=== PATIENT | male | born 1945 | race Caucasian/White ===

== ENCOUNTER 2018-11-26 02:19 | Inpatient (IN) | payer MEDICARE, OTHER ==
[~2018-11-26] VITALS: Ht 177.8 cm; Wt 59.5 kg
[2018-11-26] MEDS ORDERED: NS IV 500 ML 500 ML IV ONE (02:46)
[2018-11-26] MEDS ORDERED: fentaNYL INJECTION 100 MCG/2 ML AMP IVP STA (02:46)
[2018-11-26] MEDS ORDERED: DEXAMETHASONE 10 MG/ML (DECADRON) 1 ML VIAL IV ONE (03:00)
[2018-11-26 03:06] LABS: BASOPHILS % (AUTO) 0 % (0-10); EOSINOPHILS % (AUTO) 0 % (0-10); HEMATOCRIT 30 % (40-54); HEMOGLOBIN 9.6 G/DL (13.3-17.7); LYMPHOCYTES # (AUTO) 0.8 X 10^3 (1.0-4.0); LYMPHOCYTES % (AUTO) 16 % (12-44); MEAN CORPUSCULAR HEMOGLOBIN 29 PG (25-34); MEAN CORPUSCULAR HGB CONC 32 G/DL (32-36); MEAN CORPUSCULAR VOLUME 90 FL (80-99); MEAN PLATELET VOLUME 7.8 FL (7.4-10.4); MONOCYTES # (AUTO) 0.2 X 10^3 (0.0-1.0); MONOCYTES % (AUTO) 3 % (0-12); NEUTROPHILS # (AUTO) 4.1 X 10^3 (1.8-7.8); NEUTROPHILS % (AUTO) 80 % (42-75); PLATELET COUNT 125 10^3/uL (130-400); RED BLOOD COUNT 3.29 10^6/uL (4.35-5.85); RED CELL DISTRIBUTION WIDTH 15.4 % (10.0-14.5); WHITE BLOOD COUNT 5.1 10^3/uL (4.3-11.0)
--- NOTE | 2018-11-26 03:12 | ED General ---
General Stated Complaint: HALUCINATIONS, BREAST CA STG IV METS TO BRAIN Source of Information: Patient Exam Limitations: No Limitations History of Present Illness Date Seen by Provider: Nov 26, 2018 Time Seen by Provider: 02:45 Initial Comments Here with report of altered mental status and inappropriate talk all day long. Family at bedside reports patient has breast cancer with metastasis to bone, liver, spleen, kidney and brain. Currently undergoing chemotherapy but also having radiation therapy. Did have radiation therapy yesterday. Mental status changes started in the morning but improved at about the time of radiation therapy but worsened again tonight. Family notes that he has been cursing a lot and this is not like him. Also note have a changes such as he has worn his cowboy hat for 40 years but tonight he is wearing a baseball Instead he is telling inappropriate jokes. They're concerned about the lesions in his brain. He is on Xarelto for blood clots in the past. No recent falls or injury to report. Family at bedside and are attentive to his knees. Patient is DO NOT RESUSCITATE. Currently is on dexamethasone 4 mg twice a day. He has not missed any doses of medicine. Currently on oxycodone 10 one half to one tab every 4 hours as needed for pain. Pain is to the chest and upper abdomen which is typical for his cancer pain. This is not a new type pain for him. Denies headaches or vision problems. Timing/Duration: 12-24 Hours, Getting Worse Severity: Moderate Modifying Factors: improves with Rest Associated Systoms: No Cough, No Fever/Chills, No Headaches, No Loss of Appetite, No Nausea/Vomiting, No Shortness of Air, No Weakness Allergies and Home Medications Allergies Coded Allergies: No Known Drug Allergies (Unverified , 11/26/18) Patient Home Medication List Home Medication List Reviewed: Yes Review of Systems Review of Systems Constitutional: see HPI; No chills, No fever EENTM: no symptoms reported Cardiovascular: no symptoms reported Gastrointestinal: abdominal pain (epigastric and low chest wall); No nausea, No vomiting Genitourinary: no symptoms reported Musculoskeletal: see HPI, muscle pain; No muscle weakness Skin: no symptoms reported Psychiatric/Neurological: No Symptoms Reported All Other Systems Reviewed Negative Unless Noted: Yes Past Nstkkeq-Qjkmci-Vnchfv Hx Past Med/Social Hx: Reviewed Nursing Past Med/Soc Hx Patient Social History Alcohol Use: Denies Use Recreational Drug Use: No Smoking Status: Former Smoker Recent Foreign Travel: No Contact w/Someone Who Travel: No Past Medical History Surgeries: Yes Appendectomy Respiratory: No Cardiac: No Neurological: Yes Brain Tumor Cancer: Yes Brain, Liver, Bone, Breast, Kidney Did You Recieve Any Treatments: Yes What Type of Treatment Did You: Chemotherapy, Radiation Family Medical History Reviewed Nursing Family Hx Physical Exam Vital Signs Vital Signs - First Documented 11/26/18 03:24 Temp 98.0 Pulse 86 Resp 20 B/P (MAP) 110/73 (85) Pulse Ox 98 O2 Delivery Room Air Capillary Refill : Height, Weight, BMI Height: '" Weight: lbs. oz. kg; BMI Method: General Appearance: No Apparent Distress, Thin HEENT: PERRL/EOMI, Pharynx Normal Neck: Non Tender, Supple Respiratory: Lungs Clear, Normal Breath Sounds Cardiovascular: Regular Rate, Rhythm, No Murmur Gastrointestinal: Normal Bowel Sounds, No Organomegaly, No Pulsatile Mass, Soft , Tenderness (epigastric low chest region) Back: Normal Inspection, No CVA Tenderness, No Vertebral Tenderness Extremity: Normal Range of Motion, Non Tender Neurologic/Psychiatric: Alert, Disoriented (situation) Skin: Normal Color, Warm/Dry Progress/Results/Core Measures Suspected Sepsis SIRS Temperature: Pulse: Respiratory Rate: Laboratory Tests 11/26/18 02:57: White Blood Count 5.1 Blood Pressure / Mean: Laboratory Tests 11/26/18 02:57: Creatinine 0.84, Platelet Count 125L, Total Bilirubin 0.4 Results/Orders Lab Results Laboratory Tests Test 11/26/18 02:57 Range/Units White Blood Count 5.1 4.3-11.0 10^3/uL Red Blood Count 3.29 L 4.35-5.85 10^6/uL Hemoglobin 9.6 L 13.3-17.7 G/DL Hematocrit 30 L 40-54 % Mean Corpuscular Volume 90 80-99 FL Mean Corpuscular Hemoglobin 29 25-34 PG Mean Corpuscular Hemoglobin Concent 32 32-36 G/DL Red Cell Distribution Width 15.4 H 10.0-14.5 % Platelet Count 125 L 130-400 10^3/uL Mean Platelet Volume 7.8 7.4-10.4 FL Neutrophils (%) (Auto) 80 H 42-75 % Lymphocytes (%) (Auto) 16 12-44 % Monocytes (%) (Auto) 3 0-12 % Eosinophils (%) (Auto) 0 0-10 % Basophils (%) (Auto) 0 0-10 % Neutrophils # (Auto) 4.1 1.8-7.8 X 10^3 Lymphocytes # (Auto) 0.8 L 1.0-4.0 X 10^3 Monocytes # (Auto) 0.2 0.0-1.0 X 10^3 Eosinophils # (Auto) 0.0 0.0-0.3 10^3/uL Basophils # (Auto) 0.0 0.0-0.1 10^3/uL Sodium Level 135 135-145 MMOL/L Potassium Level 4.0 3.6-5.0 MMOL/L Chloride Level 101 98-107 MMOL/L Carbon Dioxide Level 22 21-32 MMOL/L Anion Gap 12 5-14 MMOL/L Blood Urea Nitrogen 18 7-18 MG/DL Creatinine 0.84 0.60-1.30 MG/DL Estimat Glomerular Filtration Rate > 60 BUN/Creatinine Ratio 21 Glucose Level 123 H 70-105 MG/DL Calcium Level 9.3 8.5-10.1 MG/DL Corrected Calcium 9.7 8.5-10.1 MG/DL Magnesium Level 2.0 1.8-2.4 MG/DL Total Bilirubin 0.4 0.1-1.0 MG/DL Aspartate Amino Transf (AST/SGOT) 23 5-34 U/L Alanine Aminotransferase (ALT/SGPT) 14 0-55 U/L Alkaline Phosphatase 103 40-136 U/L Total Protein 6.9 6.4-8.2 GM/DL Albumin 3.5 3.2-4.5 GM/DL My Orders Orders - BELINDA ORTIZ MD Cbc With Automated Diff (11/26/18 02:46) Comprehensive Metabolic Panel (11/26/18 02:46) Magnesium (11/26/18 02:46) Fentanyl Injection (Sublimaze Injection (11/26/18 02:46) Dexamethasone Injection (Decadron Inject (11/26/18 03:00) Saline Lock/Iv-Start (11/26/18 02:46) Ns Iv 500 Ml (Sodium Chloride 0.9%) (11/26/18 02:46) Ct Head W Wo (11/26/18 03:41) Lorazepam Injection (Ativan Injection) (11/26/18 03:45) Lorazepam Injection (Ativan Injection) (11/26/18 04:15) Iohexol Injection (Omnipaque 350 Mg/Ml 1 (11/26/18 05:00) Contrast Received (Contrast Received) (11/26/18 05:00) Ns (Ivpb) (Sodium Chloride 0.9% Ivpb Bag (11/26/18 05:00) Olanzapine Orally Dissolve Tab (Zyprexa (11/26/18 06:00) Medications Given in ED Current Medications Medications Dose Ordered Sig/Emanuel Route Start Time Stop Time Status Last Admin Dose Admin Dexamethasone Sodium Phosphate 10 mg ONCE ONCE IV 11/26/18 03:00 11/26/18 03:01 DC 11/26/18 03:11 10 MG Iohexol 100 ml ONCE ONCE IV 11/26/18 05:00 11/26/18 05:01 DC 11/26/18 05:01 80 ML Lorazepam 0.5 mg ONCE ONCE IVP 11/26/18 03:45 11/26/18 03:47 DC 11/26/18 03:56 0.5 MG Lorazepam 1 mg ONCE ONCE IVP 11/26/18 04:15 11/26/18 04:16 DC 11/26/18 04:12 1 MG Olanzapine 5 mg ONCE ONCE PO 11/26/18 06:00 11/26/18 06:01 DC 11/26/18 05:53 5 MG Sodium Chloride 100 ml ONCE ONCE IV 11/26/18 05:00 11/26/18 05:01 DC 11/26/18 05:01 80 ML Sodium Chloride 500 ml @ 0 mls/hr Q0M ONCE IV 11/26/18 02:46 11/26/18 02:57 DC 11/26/18 03:16 500 MLS/HR Vital Signs/I&O 11/26/18 03:24 Temp 98.0 Pulse 86 Resp 20 B/P (MAP) 110/73 (85) Pulse Ox 98 O2 Delivery Room Air Capillary Refill : Progress Note : Progress Note Seen and evaluated. IV access via port. Consideration of CT head with contrast so we may need another IV. Definitely we'll get CT without contrast. Pending labs. Labs ordered. Normal saline 500 mL bolus. Decadron 10 mg IV and fentanyl 50 g IV ordered. Monitor patient. CT head with and without contrast ordered. Patient did require Ativan 0.5 mg IV and then repeat dose of 1 mg IV to keep him calm for procedure. He tolerated this well. Procedure completed. 0525: CT results noted. 0545: I did discuss the case with Dr. Johnson. She accepts patient for admission, inpatient status. Zyprexa Zydis 5 mg by mouth given. Family informed of findings and concerns and agree with the plan. Patient is DO NOT RESUSCITATE. Consult oncology and radiation oncology in the morning. Diagnostic Imaging Diagonstic Imaging: CT Plain Films/CT/US/NM/MRI: head Comments There is a 2 cm enhancing mass in the right cerebellar hemisphere with vasogenic edema. This is not substantially different when compared to the recent MRI dated 11/21/18. There is no evidence of intracranial hemorrhage or acute infarct. Reviewed: [facility] ([facility]missions) Time/Spoke to Admitting Phy: 05:45 Impression Primary Impression: Altered mental status Qualified Codes: R41.0 - Disorientation, unspecified Additional Impression: Metastatic cancer to brain Disposition: ADMITTED INPATIENT Condition: Stable Admissions Decision to Admit Reason: Admit from ER (General) Decision to Admit/Date: Nov 26, 2018 Time/Decision to Admit Time: 05:45 Departure-Patient Inst. Referrals: NO,LOCAL PHYSICIAN (PCP/Family) Primary Care Physician BELINDA ORTIZ MD Nov 26, 2018 03:12
[2018-11-26 03:25] LABS: ALANINE AMINOTRANSFERASE 14 U/L (0-55); ALBUMIN 3.5 GM/DL (3.2-4.5); ALKALINE PHOSPHATASE 103 U/L (40-136); BILIRUBIN,TOTAL 0.4 MG/DL (0.1-1.0); BUN/CREATININE RATIO 21; CALCIUM 9.3 MG/DL (8.5-10.1); CARBON DIOXIDE 22 MMOL/L (21-32); CHLORIDE 101 MMOL/L (98-107); CREATININE SERUM 0.84 MG/DL (0.60-1.30); GFR ESTIMATED > 60; GLUCOSE 123 MG/DL (70-105); SODIUM 135 MMOL/L (135-145); TOTAL PROTEIN 6.9 GM/DL (6.4-8.2)
[2018-11-26] MEDS ORDERED: LORazepam INJ 2 MG/ML (ATIVAN) VIAL IVP ONE ×2 (03:45→04:15)
[2018-11-26] MEDS ORDERED: RECEIVED CONTRAST (Hold Metformin) IV SCH (05:00)
[2018-11-26] MEDS ORDERED: NS 100 ML (IVPB) BAG IV ONE (05:00)
[2018-11-26] MEDS ORDERED: IOHEXOL 350 MG/ML 100 ML (OMNIPAQUE 350) VIAL IV ONE (05:00)
[2018-11-26] MEDS ORDERED: OLANZapine 5 MG ODT (ZyPREXA ZYDIS) PO ONE (06:00)
--- NOTE | 2018-11-26 06:12 | NUR ---
Pt urinated 175 mls.
--- NOTE | 2018-11-26 06:35 | NUR ---
JOCELYNNASTER L admitted to room 427-1, with an admitting diagnosis of AMS and Breast cancer with mets on 11/26/18 from ED via , accompanied by family and ED staff.ASTER CABEZAS introduced to surroundings, call light, bed controls, phone, TV, temperature control, lights, meal times, smoking policy, visitor policy, side rail policy, bathrooms and showers. Patient Rights given to patient in the handbook. ASTER CABEZAS verbalizes understanding that [facility] is not responsible for the loss or damage to any personal effects or valuables that are kept in the patients posession during their hospitalization. The following Patient Care Plans were discussed with the pt and family: Discharge Planning, alteration in comfort, alt in mobility, and potential for injury. ASTER CABEZAS verbalizes understanding of Interdisciplinary Patient Education. Patient and/or family were informed about the Rapid Response Team and its purpose.
--- NOTE | 2018-11-26 06:46 | Diagnostic Imaging Report ---
PROCEDURE: CT head with and without contrast. TECHNIQUE: Multiple contiguous axial images were obtained through the brain before and after the administration of intravenous contrast. INDICATION: Breast cancer which is metastatic. Comparison is made with prior examination from 11/21/2018. FINDINGS: Some atrophy and chronic microvascular ischemic disease. There is no evidence of acute infarct. There is no hemorrhage. There is no hydrocephalus. There is vasogenic edema in the right cerebellar hemisphere. When compared to prior MRI, the patient has a right cerebellar metastatic focus. There is minimal mass effect. Following contrast injection there is enhancing mass in the anterior right cerebellar hemisphere measuring 2 cm. Calvarium is intact. Sinuses are clear. IMPRESSION: A 2 cm enhancing mass in the right cerebellar hemisphere with vasogenic edema. This is not significantly changed when compared to prior MRI from 11/21/2018. No evidence of hemorrhage or acute infarct. Dictated by: Dictated on workstation # [id number]
[2018-11-26] MEDS ORDERED: ONDANSETRON 4 MG/2 ML (SDV) Z0FRAN IV PRN (07:15)
[2018-11-26] MEDS ORDERED: oxyCODONE/APAP 10/325MG (PERCOCET 10) TABLET PO PRN (07:15)
[2018-11-26] MEDS ORDERED: fentaNYL INJECTION 100 MCG/2 ML AMP IV PRN (07:15)
[2018-11-26] MEDS ORDERED: CATHETER FLUSH 10 ML SYR IV PRN (07:15)
--- NOTE | 2018-11-26 07:30 | NUR ---
DR. MOE CONSULTED AT THIS TIME.
[2018-11-26 08:00] VITALS: BP 111/68
[2018-11-26] MEDS ORDERED: DEXAMETHASONE 10 MG/ML (DECADRON) 1 ML VIAL IV SCH (09:00)
--- NOTE | 2018-11-26 09:00 | NUR ---
DR. RADER HERE TO SEE PATIENT AT THIS TIME.
--- NOTE | 2018-11-26 09:35 | Progress Note-Standard ---
Standard Progress Note Progress Notes/Assess & Plan Date Seen by a Provider: Nov 26, 2018 Time Seen by a Provider: 09:29 Progress/Assessment & Plan 73-year-old male patient with history of metastatic triple negative breast cancer diagnosed in July 2017 and under treatment at [facility] clinic. Patient was diagnosed with the brain metastasis earlier this week and started on Decadron 4 mg twice a day since Wednesday. Started on whole brain radiation therapy yesterday. Patient received chemotherapy on but family unsure about the drugs. They thought the chemotherapy could be gemcitabine and carboplatin. Patient became very confused, Eriberto Sanabria and Nicole Hinton Wednesday night and a brought into the emergency room in [place]. He was evaluated and admitted for further management. Oncology consultation was obtained for concurrent care. CT scan of the head showed the metastatic lesion with surrounding edema and no evidence of bleeding. Would recommend dexamethasone 4 mg IV every 6 hours to reduce the cerebral edema. Benzodiazepines for agitation. Obtain the records from [place] as to his medications especially the chemotherapeutic agents. If he received gemcitabine-based chemotherapy this past week, I will discuss this with Dr. Moses and adjust radiation therapy as needed. I will do the full consultation tomorrow after reviewing the records. ANITHA RADER Nov 26, 2018 09:35
[2018-11-26] MEDS: DEXAMETHASONE 4 MG/ML SDV (DECADRON) IV SCH ×3 (09:45→20:22)
[2018-11-26] MEDS: LORazepam INJ 2 MG/ML (ATIVAN) VIAL IVP PRN (09:52)
--- NOTE | 2018-11-26 10:23 | History & Physical-Hospitalist ---
History of Present Illness HPI/Chief Complaint Pt is a 73yoCM with a PMH of metastatic breast cancer on palliative chemo and radiation who presented to the ER last night due to altered mental status. Patient remains very confused and unable to provide history. History is obtained from his son. Son states that he was has been on chemo this week and started radiation for brain mets yesterday. His confusion started before his radiation but after he received radiation he became more confused and agitated. He believe he was in [place] and was throwing things and acting out of character. He elected to bring him to the ER for evaluation. He was found to be behaving bizarrely likely due to cerebral edema. He was admitted for further management. Source: family Exam Limitations: clinical condition Date Seen 11/26/18 Time Seen by a Provider: 10:15 Attending Physician Antoni Michael MD PCP No,Local Physician Referring Physician Date of Admission Nov 26, 2018 at 05:54 Home Medications & Allergies Home Medications Reviewed patient Home Medication Reconciliation performed by pharmacy medication reconciliations hvac operations technician and/or nursing. Patients Allergies have been reviewed. Allergies Allergies Coded Allergies No Known Drug Allergies (Unverified11/26/18) Past Iosuyel-Nnqxpl-Zzndpo Hx Past Med/Social Hx: Reviewed Nursing Past Med/Soc Hx Patient Social History Employed/Student: retired Alcohol Use: Denies Use Alcohol Beverage of Choice: Beer Recreational Drug Use: No Smoking Status: Former Smoker Type Used: Cigarettes 2nd Hand Smoke Exposure: No Physical Abuse Screen: No Sexual Abuse: No Recent Foreign Travel: No Contact w/other who traveled: No Recent Infectious Disease Expo: No Immunizations Up To Date Pediatric: No Date of Influenza Vaccine: Aug 22, 2018 Past Medical History Surgeries: Appendectomy Currently Using CPAP: No Currently Using BIPAP: No Neurological: Brain Tumor Cancer: Brain, Liver, Bone, Breast, Kidney Did You Recieve Any Treatments: Yes What Type of Treatment Did You: Chemotherapy, Radiation Family History Reviewed Nursing Family Hx No Pertinent Family Hx Review of Systems ROS-Unable to Obtain: Confusion Constitutional: see HPI Physical Exam Physical Exam Vital Signs Vital Signs - First Documented 11/26/18 03:24 Temp 98.0 Pulse 86 Resp 20 B/P (MAP) 110/73 (85) Pulse Ox 98 O2 Delivery Room Air Capillary Refill : Less Than 3 Seconds Height, Weight, BMI Height: 5'10.00" Weight: 131lbs. 1.6oz. 59.035724fm; 18.8 BMI Method:Stated General Appearance: Chronically ill, Cachetic HEENT: PERRL/EOMI, Moist Mucous Membranes Neck: Non Tender, Supple Respiratory: Lungs Clear, No Respiratory Distress Cardiovascular: Regular Rate, Rhythm, No Murmur Gastrointestinal: Normal Bowel Sounds, Non Tender, Soft Extremity: Normal Capillary Refill, No Calf Tenderness Neurologic/Psychiatric: Alert, Disoriented, Other (moves all extremities) Skin: Normal Color, Warm/Dry Results Results/Procedures Labs Laboratory Tests 11/27/18 05:30 Patient resulted labs reviewed. Imaging: Reviewed Imaging Report Assessment/Plan Admission Diagnosis Cerebral Edema and agitation Admission Status: Inpatient Order (span 2 midnights) Reason for Inpatient Admission: Needs IV steroids and monitoring for agitation Diagnosis/Problems Diagnosis/Problems (1) Cerebral edema Status: Acute Assessment & Plan: Vasogenic edema noted on CT Head- relatively unchanged from MRI on 11/21 Continue on Decadron Oncology consulted, appreciate recs Radiation oncology consulted, appreciate recs (2) Altered mental status Status: Acute Assessment & Plan: LIke due to edema Continue on IV Decadron Continue valium and Zyprexa prn Qualifiers: Altered mental status type: delirium Qualified Codes: R41.0 - Disorientation, unspecified (3) Metastatic cancer to brain Status: Acute Assessment & Plan: Follows with oncology in [facility] Dr Banks requesting records from them to confirm type of chemo given and when Consider palliative care consult Clinical Quality Measures DVT/VTE Risk/Contraindication: Risk Factor Score Per Nursin RFS Level Per Nursing on Admit: 4+=Very High Other: SEE INTERVENTIONS ANTONI MICHAEL MD Nov 26, 2018 10:23
[2018-11-26 12:00] VITALS: BP 96/55
[2018-11-26] MEDS: CATHETER FLUSH 10 ML SYR IV SCH ×2 (15:12→20:22)
[2018-11-26 15:21] VITALS: BP 99/61
[2018-11-26 19:28] VITALS: BP 96/63
[2018-11-27] VITALS (7 sets, daily range): BP systolic 93–106; BP diastolic 50–63
[2018-11-27] MEDS: DEXAMETHASONE 4 MG/ML SDV (DECADRON) IV SCH ×4 (03:00→20:34)
[2018-11-27] MEDS: CATHETER FLUSH 10 ML SYR IV SCH ×3 (05:24→20:34)
[2018-11-27 05:50] LABS: BASOPHILS % (AUTO) 0 % (0-10); EOSINOPHILS % (AUTO) 0 % (0-10); HEMATOCRIT 27 % (40-54); HEMOGLOBIN 8.6 G/DL (13.3-17.7); LYMPHOCYTES # (AUTO) 0.4 X 10^3 (1.0-4.0); LYMPHOCYTES % (AUTO) 5 % (12-44); MEAN CORPUSCULAR HEMOGLOBIN 30 PG (25-34); MEAN CORPUSCULAR HGB CONC 32 G/DL (32-36); MEAN CORPUSCULAR VOLUME 92 FL (80-99); MEAN PLATELET VOLUME 8.5 FL (7.4-10.4); MONOCYTES # (AUTO) 0.1 X 10^3 (0.0-1.0); MONOCYTES % (AUTO) 1 % (0-12); NEUTROPHILS % (AUTO) 95 % (42-75); PLATELET COUNT 103 10^3/uL (130-400); RED BLOOD COUNT 2.91 10^6/uL (4.35-5.85); RED CELL DISTRIBUTION WIDTH 15.3 % (10.0-14.5); WHITE BLOOD COUNT 8.5 10^3/uL (4.3-11.0)
[2018-11-27 06:21] LABS: ALANINE AMINOTRANSFERASE 26 U/L (0-55); ALBUMIN 3.3 GM/DL (3.2-4.5); ALKALINE PHOSPHATASE 107 U/L (40-136); BILIRUBIN,TOTAL 0.2 MG/DL (0.1-1.0); BUN/CREATININE RATIO 30; CALCIUM 8.9 MG/DL (8.5-10.1); CARBON DIOXIDE 22 MMOL/L (21-32); CHLORIDE 103 MMOL/L (98-107); GFR ESTIMATED > 60; GLUCOSE 107 MG/DL (70-105); POTASSIUM 4.5 MMOL/L (3.6-5.0); SODIUM 135 MMOL/L (135-145); TOTAL PROTEIN 6.2 GM/DL (6.4-8.2)
[2018-11-27 07:12] LABS: LYMPHOCYTES % (MANUAL) 2 %; NEUTROPHILS % (MANUAL) 98 %; TOXIC GRANULATION/VACUOLAZATIO 1+
--- NOTE | 2018-11-27 12:54 | Progress Note-Hospitalist ---
Subjective HPI/CC On Admission Date Seen by Provider: Nov 27, 2018 Time Seen by Provider: 12:52 Pt is a 73yoCM with a PMH of metastatic breast cancer on palliative chemo and radiation who presented to the ER last night due to altered mental status. Patient remains very confused and unable to provide history. History is obtained from his son. Son states that he was has been on chemo this week and started radiation for brain mets yesterday. His confusion started before his radiation but after he received radiation he became more confused and agitated. He believe he was in [place] and was throwing things and acting out of character. He elected to bring him to the ER for evaluation. He was found to be behaving bizarrely likely due to cerebral edema. He was admitted for further management. Subjective/Events-last exam Pt is still confused but much more pleasant and less erratic today. Son at bedside feels he's doing better as well. No complaints. Objective Exam Vital Signs Vital Signs Date Time Temp Pulse Resp B/P (MAP) Pulse Ox O2 Delivery O2 Flow Rate FiO2 11/27/18 12:05 97.5 68 20 93/54 (67) 100 Room Air Capillary Refill : Less Than 3 Seconds General Appearance: No Apparent Distress, Chronically ill, Cachetic Respiratory: Lungs Clear, No Respiratory Distress Cardiovascular: Regular Rate, Rhythm, No Murmur Gastrointestinal: Normal Bowel Sounds, Non Tender, Soft Neurologic/Psychiatric: Alert, Disoriented Results/Procedures Lab Laboratory Tests 11/27/18 05:30 Patient resulted labs reviewed. Imaging: Reviewed Imaging Report Assessment/Plan Assessment and Plan Assess & Plan/Chief Complaint Cerebral edema Diagnosis/Problems Diagnosis/Problems (1) Cerebral edema Status: Acute Assessment & Plan: Vasogenic edema noted on CT Head- relatively unchanged from MRI on 11/21 Continue on Decadron Oncology consulted, appreciate recs Radiation oncology consulted, appreciate recs (2) Altered mental status Status: Acute Assessment & Plan: Much improved today- remains confused though Likely due to edema Continue on IV Decadron Continue valium and Zyprexa prn Qualifiers: Altered mental status type: delirium Qualified Codes: R41.0 - Disorientation, unspecified (3) Metastatic cancer to brain Status: Acute Assessment & Plan: Follows with oncology in [facility] Dr Banks requesting records from them to confirm type of chemo given and when Defer further treatments of radiation to radiation oncology Consider palliative care consult Clinical Quality Measures DVT/VTE Risk/Contraindication: Risk Factor Score Per Nursin RFS Level Per Nursing on Admit: 4+=Very High Other: SEE INTERVENTIONS ANTONI MICHAEL MD Nov 27, 2018 12:54
--- NOTE | 2018-11-27 20:35 | CONSULTATION REPORT ---
DATE OF SERVICE: 11/27/2018 The patient was admitted to room #427. REFERRING PHYSICIAN: Kimberlee Johnson MD IMPRESSION: 1. This 73-year-old male, admitted to the hospital with mental status changes. 2. History of triple negative breast cancer, diagnosed in 07/2017 and on treatment at [facility]. Recent diagnosis of brain metastasis with edema, started on whole brain radiation therapy last Wednesday. 3. On chemotherapy with gemcitabine and carboplatin regimen with last dose received last per patient and family. RECOMMENDATIONS: 1. Start the patient on full dose steroids with dexamethasone 10 mg IV bolus followed by 4 mg IV every 6 hours to reduce the cerebral edema. 2. We will try to obtain his previous treatment records from [facility]. 3. I will discuss his situation with Dr. Moses from radiation oncology on Wednesday morning prior to restarting radiation therapy, especially the use of gemcitabine. 4. Benzodiazepines to control agitation and aggression. 5. May consider a proton pump inhibitor for gastric protection because of high dose steroids. BRIEF HISTORY: The patient is a 73-year-old male who was recently diagnosed with brain metastasis from triple negative breast cancer. He completed radiation oncology evaluation and started palliative whole brain radiation therapy last Wednesday. He was on outpatient chemotherapy with gemcitabine and carboplatin regimen and received the last dose last . On Wednesday night, the patient became very confused and belligerent at home cursing and throwing things. He was brought to the emergency room at [facility], evaluated and admitted to the hospital for further management. Medical oncology consultation was requested for recommendations. PAST MEDICAL HISTORY: Only significant for diagnosis of triple negative right breast cancer, diagnosed in July 2017. He had evidence of metastatic disease and has been on few lines of treatment since then. Most recently, he has been on treatment with gemcitabine plus carboplatin regimen. In late October 2018, he was diagnosed with brain metastasis and referred for radiation oncology evaluation. He was started on palliative whole brain radiation therapy last Wednesday. The patient and his family denied any other medical problems previously. He has had appendectomy in the distant past. PAST SURGICAL HISTORY: He had a traumatic injury to the right shoulder and required right shoulder replacement some time ago. No other major surgeries. SOCIAL HISTORY: The patient lives near [place], [place] with his significant other. He had three children, one son and two daughters, all of whom are adults. One daughter during complications of childbirth. Other two children live close by. 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 He is a former smoker with [id number] history of tobacco use, but quit smoking 12 years ago. Denied any significant alcohol use or other recreational drug use. FAMILY HISTORY: Unremarkable with no malignancies in his family that the patient or his family knows of. PHYSICAL EXAMINATION: GENERAL: An elderly male, thin appearing, awake and answering questions fairly. Does not appear in any acute distress. VITAL SIGNS: His temperature was 97.5, pulse rate of 68, respirations 20, blood pressure 93/54 with oxygen saturation of 100% on room air. HEENT: Normocephalic with slight thinning hair. Extraocular muscles intact, conjunctivae pink, oral mucosa moist without lesions. NECK: Supple with no JVD. No cervical, supraclavicular or axillary lymphadenopathy palpable. LUNGS: Fairly clear to auscultation without wheezes or rales. CARDIOVASCULAR: Slightly irregular, without murmurs or gallops. ABDOMEN: Soft with mild tenderness in the upper quadrants without guarding or rebound. No definite hepatosplenomegaly or other masses palpable. EXTREMITIES: No edema. NEUROLOGIC: No focal motor deficits. LABORATORY DATA: CBC done today, showed WBC 8.5, hemoglobin 8.6, MCV 92, platelet count 103,000 with neutrophil count 8 and lymphocyte count 0.4. Chemistry panel showed normal electrolytes. BUN was 24 and creatinine 0.8 with GFR more than 60 mL per minute. Nonfasting glucose was 107. AST was minimally elevated at 37 with rest of the liver function studies within normal limits. The patient had a CT scan of the head, done on 11/26/2018 at the emergency room. This showed a 2 cm enhancing mass in the right cerebellar hemisphere with vasogenic edema. This has not significantly changed when compared to a previous MRI from 11/21/2018. Thank you for allowing me to participate in this patient's care. I will follow the patient with you and make appropriate recommendations. Job ID: [id number] DocumentID: [id number] Dictated Date: 11/27/2018 13:57:18 Confectionery Maker Date: 11/27/2018 20:35:22 Dictated By: ANITHA RADER MD
[2018-11-28] MEDS: DEXAMETHASONE 4 MG/ML SDV (DECADRON) IV SCH ×4 (03:13→20:34)
[2018-11-28 04:00] VITALS: BP 104/64
[2018-11-28] MEDS: CATHETER FLUSH 10 ML SYR IV SCH ×3 (05:57→20:34)
[2018-11-28 08:00] VITALS: BP 103/59
[2018-11-28] MEDS ORDERED: RIVA20TA PO (10:23)
[2018-11-28] MEDS ORDERED: TAMS0.4C98 PO (10:23)
[2018-11-28] MEDS ORDERED: OXYCOD/APAP PO (10:25)
[2018-11-28 12:00] VITALS: BP 102/61
[2018-11-28] MEDS ORDERED: DEXA4TAB PO (14:18)
[2018-11-28] MEDS ORDERED: ONDA8TAB6 PO (14:18)
[2018-11-28] MEDS ORDERED: OXYC-471 PO (14:18)
[2018-11-28] MEDS ORDERED: LIDO30CR20 TP (14:18)
--- NOTE | 2018-11-28 14:19 | NUR ---
LIST FAXED OVER FROM [facility] AND UPDATED MED REC ACCORDINGLY. ALSO CALLED [facility] IN [place] FOR A LIST OF RECENTLY FILLED MEDICATIONS. [facility] [place] FILLED: 11-23-18 DEXAMETHASONE 4MG BID #60 11-17-18 ZOFRAN 8MG Q8H PRN #30 09-22-18 OXYCODONE 5-325MG EVERY 4-6H PRN #100 FLOMAX 0.4MG DAILY XARELTO 20MG DAILY GIRLFRIEND BOB REPORTS HE TAKES THESE BOTH AM AND [facility]. LIDOCAINE/PRILOCAINE TOPICALLY WHEN ACCESSING PORT.
--- NOTE | 2018-11-28 15:00 | NUR ---
Pastoral Care Visit.
[2018-11-28 16:15] VITALS: BP 99/57
--- NOTE | 2018-11-28 16:29 | Progress Note-Hospitalist ---
Progress Note Progress Notes/Assess & Plan Date Seen 11/28/18 Time Seen by Provider: 16:26 Assessment & Plan The patient is a 73-year-old white male with metastatic male breast cancer. Hormone markers are negative. He was admitted 2 days ago in a very agitated state. This appeared to be secondary to a newly diagnosed brain metastasis and cerebral edema. He has been receiving Decadron and is in greatly improved condition at this point in time. Physical exam: He is bright and conversant, cool and calm. He appears to be oriented. Dr. Banks is also present and laid out the future plan of treatment. Impression: Male breast cancer with metastasis to brain. Secondary cerebral edema. Plan: Continue Decadron. Consultation with radiation therapy. JOSH KUO MD Nov 28, 2018 16:29
[2018-11-28] MEDS: LORazepam INJ 2 MG/ML (ATIVAN) VIAL IVP PRN (17:22)
--- NOTE | 2018-11-28 17:56 | NUR ---
1710 PT FAMILY AT BEDSIDE AND NOTICED PT HAD PULLED OUT IV ACCESS IN RIGHT [place]. THIS RN REACCESSED PORT WITH 19G 0.75 INCH POWER LOC X 1 ATTEMPT. IV FLUSHES AND BLOOD RETURN NOTED. STERILE TECHNIQUE USED. PT TOLERATED WELL. ATIVAN 1 MG GIVEN PER FAMILY REQUEST.
[2018-11-28 20:25] VITALS: BP 105/60
[2018-11-29] VITALS: BP 102/54
[2018-11-29] MEDS: CATHETER FLUSH 10 ML SYR IV SCH ×2 (03:41→15:42)
[2018-11-29] MEDS: DEXAMETHASONE 4 MG/ML SDV (DECADRON) IV SCH ×3 (03:41→15:42)
[2018-11-29 04:00] VITALS: BP 98/57
[2018-11-29 08:59] VITALS: BP 96/61
--- NOTE | 2018-11-29 11:30 | NUR ---
Pt's son and Significant Other at pt's bedside.Provided Transportation and meal assistance as pt's family remaining in the hospital and live some distance in [place], [place].
[2018-11-29 12:00] VITALS: BP 102/58
--- NOTE | 2018-11-29 15:14 | Progress Note-Hospitalist ---
Progress Note Progress Notes/Assess & Plan Date Seen 11/29/18 Time Seen by Provider: 15:11 Assessment & Plan The patient had reports he is feeling much brighter today. He is able to identify the day date and place. He was seen by Dr. Moses from radiation therapy this afternoon. He states that the patient is capable of going home. He is to see his oncologist tomorrow and that will not be aching no visit. He will then return to radiation therapy and Dr. Moses on at the previously scheduled time. It would appear that they need prescriptions for Decadron and Ativan. Physical exam: His this age is brighter than yesterday. Lungs are distant but clear. CV is regular. Extremities show no pedal edema. Impression: 1.male breast cancer. 2.metastasis to brain. 3.altered mentation secondary to number 2. Plan: Discharge. See discharge sequence for medications and routines. JOSH KUO MD Nov 29, 2018 15:14
[2018-11-29] MEDS ORDERED: oxyCODONE/APAP 5/325MG (PERCOCET 5) TABLET PO PRN (15:15)
[2018-11-29] MEDS ORDERED: LORA-407 PO (15:25)
[2018-11-29] MEDS ORDERED: Decadron (15:25)
--- NOTE | 2018-11-29 15:27 | Discharge Instructions ---
Discharge Instructions Patient Instructions Patient Instructions: Decadron 4 mg every 6 hours as Ativan 2 mg as needed 3 times daily. Keep your appointment with your oncologist tomorrow. Keep your appointment with Dr. Moses for radiation therapy on . Activity & Diet Discharge Diet: No Restrictions Activity as Tolerated: Yes JOSH KUO MD Nov 29, 2018 15:27
[2018-11-29 16:21] VITALS: BP 102/58
[2018-11-30] MEDS ORDERED: TAMSULOSIN 0.4 MG (FLOMAX) CAP PO SCH (09:00)
== END 2018-11-29 15:50 | disposition home or self-care (01) | DRG 54 ==
LOC: EDUNIT# 02:19 → ER 02:23 → 4TH 05:54
PROVIDERS: ADMIT Family Medicine; ATTEND Family Medicine
DX: C79.31 Secondary malignant neoplasm of brain (principal); G93.6 Cerebral edema; R44.3 Hallucinations, unspecified; R45.1 Restlessness and agitation; R41.0 Disorientation, unspecified; R64 Cachexia; C79.51 Secondary malignant neoplasm of bone; C78.7 Secondary malignant neoplasm of liver and intrahepatic bile duct; Z66 Do not resuscitate; C78.89 Secondary malignant neoplasm of other digestive organs; C79.00 Secondary malignant neoplasm of unspecified kidney and renal pelvis; C50.911 Malignant neoplasm of unspecified site of right female breast; G89.3 Neoplasm related pain (acute) (chronic); Z87.891 Personal history of nicotine dependence; Z92.3 Personal history of irradiation; Z79.899 Other long term (current) drug therapy; Z79.01 Long term (current) use of anticoagulants; Z86.718 Personal history of other venous thrombosis and embolism
CPT/HCPCS: 36415; 70470; 80053; 83735; 85007; 85025; 85027; 96374; 96375; 99212

== ENCOUNTER 2018-12-11 12:38 | Emergency (ER) | payer MEDICARE, OTHER | END 2018-12-11 16:12 | disposition home or self-care (01) | LOC: ER 12:38 ==

== ENCOUNTER 2018-12-13 09:28 | Outpatient (RCR) | payer MEDICARE, OTHER ==
[~2018-12-13 09:28] MED LIST: DEXA4TAB PO; Decadron; LIDO30CR20 TP; LORA-407 PO; ONDA8TAB6 PO; OXYC-471 PO; OXYCOD/APAP PO; RIVA20TA PO; TAMS0.4C98 PO
== END 2019-02-21 | disposition home or self-care (01) ==
LOC: ONC 09:28
PROVIDERS: ATTEND Radiology Radiation Oncology
DX: Z51.0 Encounter for antineoplastic radiation therapy (principal); C79.31 Secondary malignant neoplasm of brain; C79.51 Secondary malignant neoplasm of bone; C78.7 Secondary malignant neoplasm of liver and intrahepatic bile duct; C78.89 Secondary malignant neoplasm of other digestive organs; C79.00 Secondary malignant neoplasm of unspecified kidney and renal pelvis; C50.921 Malignant neoplasm of unspecified site of right male breast
CPT/HCPCS: 77290; 77295; 77300; 77334; 77336; 77417; 99204; 99214